=== PATIENT | female | born 1960 | race Caucasian/White ===

== ENCOUNTER 2017-09-21 08:45 | Inpatient (IN) | payer OTHER ==
[~2017-09-21] VITALS: Ht 162.6 cm; Wt 75.7 kg
[~2017-09-21 08:45] MED LIST: AMOX1TAB12 PO; COZAAR100 MG; INTESTINEX1 CAP PO; NORTUSS-EX LIQ118 ML PO; OSEL75CA PO; PROTONIX40 MG PO; TUSSI PRES-B L120 M1 PO; ZYRTEC10 MG PO
[2017-09-25] MEDS ORDERED: AMOX1TAB5 PO (18:33)
== END 2017-09-25 19:10 | DRG 439 ==
LOC: ER 08:45 → MEDJ 15:39
PROC: BW21YZZ Computerized Tomography (CT Scan) of Abdomen and Pelvis using Other Contrast (ICD-10-PCS; 2017-09-21)
PROC: BW40ZZZ Ultrasonography of Abdomen (ICD-10-PCS; 2017-09-21)
PROC: BF37ZZZ Magnetic Resonance Imaging (MRI) of Pancreas (ICD-10-PCS; 2017-09-21)
PROC: BW20Y0Z Computerized Tomography (CT Scan) of Abdomen using Other Contrast, Unenhanced and Enhanced (ICD-10-PCS; principal; 2017-09-22)
DX: K85.80 Other acute pancreatitis without necrosis or infection (principal); K57.32 Diverticulitis of large intestine without perforation or abscess without bleeding; K86.2 Cyst of pancreas; I10 Essential (primary) hypertension; K52.89 Other specified noninfective gastroenteritis and colitis